=== PATIENT | male | born 1955 ===

== ENCOUNTER 2025-09-25 13:58 | Outpatient (CLI) | payer MEDICARE, SELFPAY ==
--- NOTE | 2025-09-25 13:45 | US_ITS ---
WS: [id number] RENAL ULTRASOUND HISTORY: I10 - Essential (primary) hypertension COMPARISON: None available. TECHNIQUE: 2-D and color Doppler imaging of the kidney submitted. Right kidney: 6.1 cm x 2.4 cm x 3.0 cm. Cortex: 0.7 cm Moderate atrophy with cortical thinning RIGHT kidney. Diffuse increased echogenicity. No obstruction or mass. Left kidney: 10.3 cm x 5.4 cm x 4.5 cm. Cortex: 1.0 cm Normal size kidney. Normal size cortex. No obstruction or mass. Mild increased echogenicity. Aorta: Dilated abdominal aorta. Aneurysmal dilatation to 3.6 cm. Urinary Bladder: Normally distended bladder with mild prostate enlargement. US/US renal BI* [id number] IMPRESSION: 1. Moderate atrophy with cortical thinning RIGHT kidney with chronic medical r enal disease. 2. No renal obstruction. 3. Normal size LEFT kidney. 4. Abdominal aortic aneurysm, 3.6 cm.
== END 2025-09-25 13:59 | disposition home or self-care (01) ==
LOC: RAD 14:04
PROVIDERS: PCP Nurse Practitioner Family; Visit Provider Nurse Practitioner Family
DX: I12.9 Hypertensive chronic kidney disease with stage 1 through stage 4 chronic kidney disease, or unspecified chronic kidney disease (principal); N18.9 Chronic kidney disease, unspecified; I71.40 Abdominal aortic aneurysm, without rupture, unspecified
CPT/HCPCS: 76770